=== PATIENT | female | born 1945 | race Asian ===

== ENCOUNTER 2017-02-14 11:25 | Day surgery (SDC) | payer MEDICARE, OTHER ==
[2017-02-14] VITALS (7 sets, daily range): BP systolic 117–143; BP diastolic 60–77; PULSE 63–96; RESP 14–20; Ht 160 cm; Wt 58.5 kg
[~2017-02-14] VITALS: Ht 160 cm; Wt 58.5 kg
[~2017-02-14 11:25] MED LIST: DEXAMETHASONE 4 MG/ML 1 ML INJ ONE; ONDANSETRON 4 MG INJ ONE; QUET25TA26; UNK HTN MED; VALS80TA2; [UNRECOGNIZED DRUG - REMARK]
[2017-02-14] MEDS ORDERED: ALEN70TA30 PO (11:38)
[2017-02-14] MEDS ORDERED: MECL-77 PO (11:39)
[2017-02-14] MEDS ORDERED: LEVO125T71 PO (11:42)
[2017-02-14] MEDS ORDERED: AMIO100T4 PO (11:42)
[2017-02-14] MEDS ORDERED: LIDO700A10 TP (11:43)
[2017-02-14] MEDS ORDERED: FENO145T19 PO (11:43)
[2017-02-14] MEDS ORDERED: VALS80TA2 PO (11:44)
[2017-02-14] MEDS ORDERED: OMEG1CAP2 PO (11:44)
[2017-02-14] MEDS ORDERED: FURO-110 PO (11:44)
[2017-02-14] MEDS ORDERED: ATOR20TA38 PO (11:45)
[2017-02-14] MEDS ORDERED: OMEP20CA16 PO (11:45)
[2017-02-14] MEDS ORDERED: MAXZ25 PO (11:47)
[2017-02-14] MEDS ORDERED: NASO17 NASAL (11:47)
[2017-02-14] MEDS ORDERED: LUBI24CA7 PO (11:47)
[2017-02-14] MEDS ORDERED: ADV25050 INHALATION (11:48)
[2017-02-14] MEDS ORDERED: QUET200T27 PO (11:49)
[2017-02-14] MEDS ORDERED: ALPR2TAB PO (11:49)
[2017-02-14] MEDS ORDERED: DULO60CA59 PO (11:49)
[2017-02-14] MEDS ORDERED: CLAR500T PO (11:52)
[2017-02-14] MEDS ORDERED: SOD CHLORIDE 0.9% 1,000 ML IV SCH (12:00)
[2017-02-14] MEDS ORDERED: CEFAZOLIN 2 GM/50 ML (PMX) 50 ML IVPB SCH (12:00)
[2017-02-14 12:16] LABS: BASOPHIL # 0.1 10^3/ul (0.0-0.1); EOSINOPHILS # 0.2 10^3/ul (0.0-0.5); EOSINOPHILS % 3.8 % (0.0-7.0); HEMATOCRIT 32.7 % (37.0-47.0); HEMOGLOBIN 11.1 g/dl (12.0-16.0); LYMPHOCYTES # 3.6 10^3/ul (0.8-2.9); LYMPHOCYTES % 61.7 % (15.0-51.0); MEAN CORPUSCULAR HEMOGLOBIN 33.9 pg (29.0-33.0); MEAN CORPUSCULAR HGB CONC 33.9 g/dl (32.0-37.0); MEAN PLATELET VOLUME 9.6 fl (7.4-10.4); MONOCYTE # 0.4 10^3/ul (0.3-0.9); MONOCYTES % 6.8 % (0.0-11.0); NEUTROPHIL # 1.5 10^3/ul (1.6-7.5); NEUTROPHILS % 26.4 % (39.0-77.0); PLATELET COUNT 313 10^3/UL (140-415); RED BLOOD COUNT 3.27 10^6/ul (4.20-5.40); RED CELL DISTRIBUTION WIDTH 15.3 % (11.5-14.5); WHITE BLOOD COUNT 5.8 10^3/ul (4.8-10.8)
[2017-02-14 12:39] LABS: PARTIAL THROMBOPLASTIN TIME 28.5 Sec (25.0-35.0)
[2017-02-14 12:41] LABS: ALBUMIN 4.1 g/dl (3.3-4.9); ALBUMIN/GLOBULIN RATIO 1.36; BILIRUBIN,INDIRECT 0.2 mg/dl (0-1.1); BILIRUBIN,TOTAL 0.2 mg/dl (0.2-1.3); TOTAL PROTEIN 7.1 g/dl (6.1-8.1)
--- NOTE | 2017-02-14 12:43 | RADRPT ---
PROCEDURE: XR Chest. CLINICAL INDICATION: Preop TECHNIQUE: An AP view of the chest was obtained. COMPARISON: No prior exam is available for comparison. FINDINGS: There is prominence of the interstitial markings. There is a small right pleural effusion. No pneum othorax is seen. The cardiomediastinal silhouette is mildly enlarged . Calcifications are seen wit hin the aortic arch. The osseous structures demonstrate senescent changes. IMPRESSION: 1. Mild prominence of the interstitial markings, may reflect mild underlying interstitial edema or chronic lung changes. 2. Small right pleural effusion. 3. Mild cardiomegaly and aortic atherosclerosis. RPTAT: HH .Ana Grissom MD, MD Date Time Electronically viewed and signed by .Ana Grissom MD, on 02/14/2017 12:43 .G/
[2017-02-14 12:46] LABS: CALCIUM 9.6 mg/dl (8.4-10.2); CREATININE 0.92 mg/dl (0.44-1.00); POTASSIUM 4.1 mmol/L (3.5-5.1)
[2017-02-14 12:55] LABS: INR 1.08; PROTIME 14.1 Sec (11.9-14.9); PT RATIO 1.1
--- NOTE | 2017-02-14 13:19 | RADRPT ---
Vent Rate: 56 bpm RR Interval: 0 msec UT Interval: 200 msec QRS Duration: 88 msec QT Interval: 394 msec QTC Interval: 380 msec P-R-T [place]: 13 - 71 - 41 degrees Sinus bradycardia Otherwise normal ECG Electronically Signed By: Madi Russell [id number]
[2017-02-14] MEDS ORDERED: morphine (1 MG/ML) 10ML SYRINGE IV PRN ×3 (14:00)
[2017-02-14] MEDS ORDERED: OXYCODONE/ACETAMINOPHEN (5/325) TAB PO PRN (14:00)
[2017-02-14] MEDS ORDERED: LABETALOL HCL 20MG INJ IV PRN (14:00)
[2017-02-14] MEDS ORDERED: DIPHENHYDRAMINE 50 MG INJ IV PRN (14:00)
[2017-02-14] MEDS ORDERED: FENTAnyl 50 MCG/ML VIAL IV PRN ×3 (14:00)
[2017-02-14] MEDS ORDERED: KETOROLAC 30 MG INJ IV PRN (14:00)
[2017-02-14] MEDS ORDERED: PROPOFOL 100 ML ONE (14:00)
[2017-02-14] MEDS ORDERED: EPHEDrine SULFATE 50 MG/5 ML SYG IV PRN (14:00)
[2017-02-14] MEDS ORDERED: METOCLOPRAMIDE 10 MG INJ IV PRN (14:00)
[2017-02-14] MEDS ORDERED: hydrALAzine 20 MG INJ IV PRN (14:00)
[2017-02-14] MEDS ORDERED: ONDANSETRON 4 MG INJ IV PRN (14:00)
[2017-02-14] MEDS ORDERED: SUCCINYLCHOLINE CHLORIDE 100 MG/5 ML SYG IV ONE (14:04)
[2017-02-14] MEDS ORDERED: LIDOCAINE 2% (SDV) 5 ML INJ ONE (14:04)
[2017-02-14] MEDS ORDERED: FENTAnyl 50 MCG/ML VIAL ONE (14:04)
[2017-02-14] MEDS ORDERED: CEFAZOLIN 1 GM INJ ONE (14:19)
[2017-02-14] MEDS ORDERED: BUPIVACAINE 0.5%/EPI (SDV) 30 ML INJ ONE (14:41)
--- NOTE | 2017-02-14 15:03 | SIPON ---
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
--- NOTE | 2017-02-14 15:04 | OPR ---
DATE OF OPERATION: 02/14/2017 PREOPERATIVE DIAGNOSIS: Cystic mass posterior cervical region. POSTOPERATIVE DIAGNOSIS: Cystic mass posterior cervical region. PROCEDURE: Excision of cystic mass posterior cervical region. ANESTHESIA: General. ANESTHESIOLOGIST: Dr. Arias. SURGEON: Dr. Nguyen. MOTO MIX OPERATOR: None. INDICATIONS FOR PROCEDURE: The patient is a 71-year-old female who presented with an inflamed cysti c mass in her posterior cervical region, She states that intermittently she experienced some drainag e. Clinically, it was consistent with probable infected epidermal inclusion cyst. She was counsele d as to the risks versus benefits of excision. She consented and was scheduled for surgery. DESCRIPTION OF PROCEDURE: The patient was brought to the operating theater, placed under general an esthesia. She was then put in prone position. Posterior cervical region was prepped and draped in the usual sterile fashion. The palpable mass was identified and approximately a 3 cm incision was m tere directly over it. Subcutaneous tissue was dissected with combination of sharp dissection and ca utery. Within the deep subcutaneous space a cystic mass was identified. With gentle pressure it be came obvious that it was associated with abscess formation and significant amounts of pus were encou ntered. The pus was suctioned and the capsule of the cystic mass was then resected using a combinat ion of cautery and sharp dissection. It was removed and sent for permanent pathologic analysis. Th e wound was irrigated with Betadine. Minimal bleeding was controlled with cautery and the decision was then made to place a quarter inch Kory drain within the wound cavity. The wound was then gen tly closed with 2-0 nylon sutures. The drain was also sewn in place with 2-0 nylon suture. The pat ient tolerated the procedure well. The estimated blood loss was approximately 10 mL. There were no complications and the patient was transported in stable condition to the recovery room. Dictated By: FOZIA MATUTE/EZE Conf#: [id number] DID#: [id number]
== END 2017-02-14 16:23 | disposition home or self-care (01) ==
LOC: SDS 11:25
PROVIDERS: ATTEND Surgery Surgical Oncology
DX: N88.8 Other specified noninflammatory disorders of cervix uteri (principal); E03.9 Hypothyroidism, unspecified; E78.5 Hyperlipidemia, unspecified; I10 Essential (primary) hypertension
CPT/HCPCS: 57500; 71010; 80053; 85025; 85610; 85730; 88307; 93005; J0690; J1100; J2405; J3010

== ENCOUNTER 2017-02-19 11:59 | Observation (INO) | payer MEDICARE, OTHER ==
[~2017-02-19] VITALS: Ht 160 cm; Wt 58.9 kg
[2017-02-19] MEDS: SALMETEROL/FLUTICASONE 250/50 INHA INH SCH (01:00)
[~2017-02-19 11:59] MED LIST changes: +ADV25050 INHALATION; +ALEN70TA30 PO; +ALPR2TAB PO; +AMIO100T4 PO; +ATOR20TA38 PO; +CLAR500T PO; -DEXAMETHASONE 4 MG/ML 1 ML INJ ONE; +DULO60CA59 PO; +FENO145T19 PO; +FURO-110 PO; +LEVO125T71 PO; +LIDO700A10 TP; +LUBI24CA7 PO; +MAXZ25 PO; +MECL-77 PO; +NASO17 NASAL; +OMEG1CAP2 PO; +OMEP20CA16 PO; -ONDANSETRON 4 MG INJ ONE; +QUET200T27 PO; -QUET25TA26; -UNK HTN MED; -VALS80TA2; +VALS80TA2 PO; -[UNRECOGNIZED DRUG - REMARK]
--- NOTE | 2017-02-19 12:16 | ERD ---
ER Documentation Chief Complaint Chief Complaint Altered level of consciousness HPI The patient is a 71-year-old female, presenting to the ER because of altered level of consciousness. She had a cystic cervical mass resection on February. She has been taking lots of pain medication and has had frequent fall at home. She is unable to provide significant history because of her condition Past medical history: Hypertension, dyslipidemia Surgical history/social history/review of system: Unable to perform due to her condition ROS Unable to perform due to her condition Medications Home Meds Reported Medications Acetaminophen with Codeine (Acetaminophen-Cod #3 Tablet) 1 Each Tablet, 1 TAB PO BID, #20 TAB 02/19/17 Clarithromycin* (Clarithromycin*) 500 Mg Tablet, 500 MG PO BID, TAB TAKE FOR 10 DAYS 02/19/17 Levocetirizine Dihydrochloride (Xyzal) 5 Mg Tablet, 5 MG PO QPM, TAB 02/19/17 Levothyroxine Sodium* (Levothyroxine Sodium*) 112 Mcg Tablet, 112 MCG PO BEFORE BREAKFAST, #30 TAB 02/19/17 Ranitidine Hcl* (Ranitidine Hcl*) 150 Mg Tablet, 150 MG PO Q12, #60 TAB 02/19/17 Quetiapine Fumarate* (Quetiapine Fumarate*) 200 Mg Tablet, 200 MG PO DAILY, TAB 02/14/17 Duloxetine Hcl* (Duloxetine Hcl*) 60 Mg Capsule.dr, 60 MG PO DAILY, #30 CAP 02/14/17 Alprazolam* (Xanax*) 2 Mg Tablet, 2 MG PO QHS Y for SLEEP, TAB 02/14/17 Salmeterol Xinaf/Fluticasone* (Advair*) 250-50 Diskus Inhaler, 1 INH INHALATION BID, #1 INHALER 02/14/17 Lubiprostone* (Amitiza*) 24 Mcg Capsule, 24 MCG PO BID, #60 CAP 02/14/17 Atorvastatin Calcium* (Atorvastatin Calcium*) 20 Mg Tablet, 20 MG PO QHS, #30 TAB 02/14/17 Valsartan* (Diovan*) 80 Mg Tablet, 80 MG PO DAILY, TAB 02/14/17 Furosemide* (Lasix*) 20 Mg Tablet, 20 MG PO DAILY, TAB 02/14/17 Mobile-3 Acid Ethyl Esters (Lovaza) 1 Gm Capsule, 2 GM PO BID, CAP 02/14/17 Fenofibrate Nanocrystallized* (Fenofibrate*) 145 Mg Tablet, 145 MG PO DAILY, TAB 02/14/17 Alendronate Sodium* (Fosamax*) 70 Mg Tablet, 70 MG PO Q7D, #4 TAB 02/14/17 Discontinued Reported Medications Clarithromycin* (Clarithromycin*) 500 Mg Tablet, 500 MG PO BID, TAB STARTED 02-04-17 FOR 10 DAYS 02/14/17 Mometasone Furoate* (Nasonex*) 50 Mcg/Hardy - 17 Gm Hardy.pump, 1 SPRAY NASAL BID, #1 BOTTLE IN EACH NOSTRIL 02/14/17 Triamterene/Hctz* (Maxzide (37.5-25)*) 1 Each Tablet, 1 EACH PO DAILY, #30 TAB 02/14/17 Omeprazole* (Omeprazole*) 20 Mg Capsule.dr, 20 MG PO DAILY, #30 CAP 02/14/17 Lidocaine (Lidoderm) 1 Each Adh..patch, 1 EACH TP DAILY 02/14/17 Levothyroxine Sodium* (Levoxyl*) 125 Mcg Tablet, 125 MCG PO BEFORE BREAKFAST, # 30 TAB 02/14/17 Amiodarone Hcl* (Amiodarone Hcl*) 100 Mg Tablet, 100 MG PO DAILY, #30 TAB 02/14/17 Meclizine Hcl* (Meclizine Hcl*) 25 Mg Tablet, 25 MG PO BID Y for DIZZINESS, TAB 02/14/17 [Depression Med Unk ] No Conflict Check 10/29/09 Quetiapine Fumarate* (Seroquel*) 25 Mg Tablet 10/29/09 [Unk Htn Med] No Conflict Check 10/29/09 Valsartan* (Diovan*) 80 Mg Tablet 10/29/09 Allergies Allergies: Coded Allergies: Penicillins (Verified Allergy, Unknown, 02/19/17) levofloxacin (Unverified Allergy, Unknown, 02/19/17) PMhx/Soc History of Surgery: Yes (I AND D OF INFECTED WOUND AT CHEST) Anesthesia Reaction: No Hx Neurological Disorder: No Hx Respiratory Disorders: No Hx Cardiac Disorders: Yes (HTN) Hx Psychiatric Problems: No Hx Miscellaneous Medical Probl: Yes (HYPERLIPIDEMIA) Hx Alcohol Use: No Hx Substance Use: No Hx Tobacco Use: Yes (1 TO 2 CIG A DAY) Physical Exam Vitals Vital Signs Date Time Temp Pulse Resp B/P Pulse Ox O2 Delivery O2 Flow Rate FiO2 02/19/17 17:46 97.6 68 16 134/83 98 Room Air 02/19/17 16:25 63 16 152/61 98 Room Air 02/19/17 14:24 69 16 159/63 98 Room Air 02/19/17 12:37 02/19/17 12:23 98.3 68 20 113/66 98 Physical Exam Const: No acute distress. Head: Atraumatic. Eyes: Normal Conjunctiva. ENT: Normal External Ears, Nose and Mouth. Neck: Full range of motion. No meningismus. Resp: Clear to auscultation bilaterally. Cardio: Regular rate and rhythm. Abd: Soft, non distended, normal bowel sounds, non tender. Skin: No petechiae or rashes. Back: No midline or flank tenderness. Ext: No cyanosis, or edema. Neur: Limited due to her condition Psych: Unable to perform due to her condition Result Diagram: 02/19/17 1230 02/19/17 1350 Results 24 hrs Laboratory Tests Test 02/19/17 12:30 02/19/17 12:44 02/19/17 13:50 02/19/17 14:18 White Blood Count 9.710^3/ul Red Blood Count 3.3010^6/ul Hemoglobin 11.1g/dl Hematocrit 32.4% Mean Corpuscular Volume 98.2fl Mean Corpuscular Hemoglobin 33.6pg Mean Corpuscular Hemoglobin Concent 34.3g/dl Red Cell Distribution Width 15.6% Platelet Count 90662^3/UL Mean Platelet Volume 10.4fl Neutrophils % 60.8% Lymphocytes % 29.7% Monocytes % 7.4% Eosinophils % 1.2% Basophils % 0.5% Nucleated Red Blood Cells % 0.0/100WBC Neutrophils # 5.910^3/ul Lymphocytes # 2.910^3/ul Monocytes # 0.710^3/ul Eosinophils # 0.110^3/ul Basophils # 0.110^3/ul Nucleated Red Blood Cells # 0.010^3/ul Prothrombin Time 13.7Sec Prothrombin Time Ratio 1.1 INR International Normalized Ratio 1.04 Activated Partial Thromboplast Time 29.2Sec Bedside Glucose 109mg/dL Sodium Level 144mmol/L Potassium Level 3.8mmol/L Chloride Level 108mmol/L Carbon Dioxide Level 27mmol/L Anion Gap 13 Blood Urea Nitrogen 21mg/dl Creatinine 0.89mg/dl Glucose Level 91mg/dl Calcium Level 9.2mg/dl Total Bilirubin 0.2mg/dl Direct Bilirubin 0.00mg/dl Indirect Bilirubin 0.2mg/dl Aspartate Amino Transf (AST/SGOT) 90IU/L Alanine Aminotransferase (ALT/SGPT) 30IU/L Alkaline Phosphatase 34IU/L Total Protein 6.9g/dl Albumin 3.8g/dl Globulin 3.10g/dl Albumin/Globulin Ratio 1.22 Salicylates Level < 1.0mg/dl Acetaminophen Level < 10.0ug/ml Ethyl Alcohol Level < 10.0mg/dl Bedside Urine pH (LAB) 6.0 Bedside Urine Protein (LAB) Negative Bedside Urine Glucose (UA) Negative Bedside Urine Ketones (LAB) Negative Bedside Urine Blood Negative Bedside Urine Nitrite (LAB) Negative Bedside Urine Leukocyte Esterase (L Trace Test 02/19/17 14:30 Urine Color YELLOW Urine Clarity CLEAR Urine pH 6.0 Urine Specific [place] 1.017 Urine Ketones NEGATIVEmg/dL Urine Nitrite NEGATIVEmg/dL Urine Bilirubin NEGATIVEmg/dL Urine Urobilinogen NEGATIVEmg/dL Urine Leukocyte Esterase NEGATIVELeu/ul Urine Hemoglobin NEGATIVEmg/dL Urine Glucose NEGATIVEmg/dL Urine Total Protein NEGATIVEmg/dl Urine Opiates Screen Positive Urine Barbiturates Negative Urine Amphetamines Screen Negative Urine Benzodiazepines Screen Positive Urine Cocaine Screen Negative Urine Cannabinoids Negative Current Medications Medications (Trade) Dose Ordered Sig/Tnoy Route PRN Reason Start Time Stop Time Status Last Admin Dose Admin Sodium Chloride (NS) 500 ml @ 500 mls/hr Q1H ONCE IV 02/19/17 14:00 02/19/17 14:59 DC 02/19/17 14:22 Alendronate Sodium (Fosamax) 70 mg Q7D PO 02/19/17 17:30 UNV Amiodarone HCl (Cordarone) 100 mg DAILY PO 02/20/17 09:00 UNV Atorvastatin Calcium (Lipitor) 20 mg QHS PO 02/19/17 21:00 UNV Duloxetine HCl (Cymbalta) 60 mg DAILY PO 02/20/17 09:00 UNV Fenofibrate (Tricor) 145 mg DAILY PO 12/13/17 09:00 UNV Furosemide (Lasix) 20 mg DAILY PO 02/20/17 09:00 UNV Levothyroxine Sodium (Synthroid) 125 mcg BEFORE BREAKFAST PO 02/20/17 07:00 UNV Lidocaine (Lidoderm) 1 patch DAILY TD 02/20/17 09:00 UNV Lubiprostone (Amitiza) 24 mcg BID PO 02/19/17 21:00 UNV Quetiapine Fumarate (Seroquel) 200 mg BID PO 02/19/17 21:00 UNV Salmeterol Xinafoate/ Fluticasone (Advair 250/50 Diskus) 1 inh BID INH 02/19/17 21:00 UNV Triamterene/HCTZ (Maxzide-25) 1 tab DAILY PO 02/20/17 09:00 UNV Valsartan (Diovan) 80 mg DAILY PO 02/20/17 09:00 UNV Miscellaneous Information 1 spray BID NASAL 02/19/17 21:00 UNV Miscellaneous Information 1 gm BID PO 02/19/17 21:00 UNV Miscellaneous Information 20 mg DAILY PO 02/20/17 09:00 UNV IV Flush (NS 3 ml) 3 ml PER PROTOCOL IV 02/19/17 17:30 UNV Acetaminophen (Tylenol Tab) 650 mg Q6H PRN PO PAIN LEVEL 1-3 OR FEVER 02/19/17 17:30 UNV Enoxaparin Sodium (Lovenox) 40 mg DAILY SC 02/20/17 09:00 UNV Procedures/[place] [id number] Radiology Main Line: [phone] DIAGNOSTIC IMAGING REPORT Patient: RAVINDRA OLVERA : 1945 Age: 71 Sex: F MR #: [id number] DOS: 02/19/17 0000 Ordering MD: DUANE GARCIA MD Location: E/R Room/Bed: PROCEDURE: XR Chest. CLINICAL INDICATION: Shortness of breath TECHNIQUE: Single portable view of the chest was obtained COMPARISON: DR PANIAGUA 02/14/2017 FINDINGS: The trachea is midline. The cardiac silhouette is enlarged and pulmonary vascularity are within normal limits. There are chronic lung changes. The lungs are clear. The costophrenic angles are sharp. IMPRESSION: 1. Cardiomegaly and chronic lung changes. No evidence of acute cardiopulmonary disease. 2. No change since prior study. RPTAT: AARR Physician Doug Date Time Electronically viewed and signed by Anton Rinaldi Physician on 02/19/2017 13:29 JL/ CC: DUANE GARCIA MD [place] [id number] Radiology Main Line: [phone] DIAGNOSTIC IMAGING REPORT Patient: RAVINDRA OLVERA : 1945 Age: 71 Sex: F MR #: [id number] DOS: 02/19/17 1225 Ordering MD: DUANE GARCIA MD Location: E/R Room/Bed: PROCEDURE: CT Brain without contrast. CLINICAL INDICATION: Altered mental status. TECHNIQUE: A CT of the brain without contrast was performed utilizing axial sections from the skull base through the vertex. One or more the following does reduction techniques were utilized: Automated exposure control, adjustment of the mA/ or kV according to patient's size, or use of iterative reconstruction technique. Total exam CTDIvol is 44.73 MGy and DLP is 630.2 mGy-cm. DICOM images are available. COMPARISON: None available. FINDINGS: The ventricles and sulci are mildly prominent indicative of volume loss. There is no intracranial hemorrhage, mass effect or midline shift. No abnormal intra- axial or extra-axial fluid collections are seen. The hope/white matter differentiation is well preserved. There are mild foci of hypoattenuation in the white matter, which are nonspecific in etiology but likely reflect chronic small vessel ischemic changes. There are mild intracranial vascular calcifications consistent with atherosclerosis. The visualized paranasal sinuses are essentially clear. IMPRESSION: 1. No acute intracranial hemorrhage, transcortical infarction or mass effect. 2. Mild intracranial atherosclerosis and chronic small vessel ischemic changes. 3. Mild generalized cerebral volume loss. RPTAT: QQ .Liban Barros MD, MD Date Time Electronically viewed and signed by .Liban Barros MD, on 02/19/2017 13: 16 .N/ CC: DUANE GARCIA MD EKG: Read by emergency physician Rate/Rhythm: Normal Sinus Rhythm 65 beats/min QRS, ST, T-waves: No ST elevation, no T inversion, inf Q waves, 1 st AVB Impression: Abnormal EKG MEDICAL MAKING DECISION: The patient is a 71-year-old female, presenting with acute encephalopathy and acute generalized weakness, most likely due to overmedication. She is unable to ambulate independently in the emergency department, she was therefore admitted to the hospital for observation The differential diagnoses considered include but are not limited to medication non-compliance, dehydration, drug intoxication or withdrawal, endocrine disorder , trauma, CVA, tumor, metabolic encephalopathy, septic encephalopathy. Departure Diagnosis: Primary Impression: Encephalopathy acute Additional Impressions: Weakness Anemia Abnormal LFTs Condition: Stable Comments I discussed the findings with the patient. I discussed the patient with the hospitalist at 4:30 PM who was made aware of the lab, the treatment, the patient condition. The patient is admitted to Tel [facility] Disclaimer: Inadvertent spelling and grammatical errors are likely due to EHR/ dictation software use and do not reflect on the overall quality of patient care. Also, please note that the electronic time recorded on this note does not necessarily reflect the actual time of the patient encounter. DUANE GARCIA MD Feb 19, 2017 12:16
[2017-02-19 12:53] LABS: BASOPHIL # 0.1 10^3/ul (0.0-0.1); BASOPHILS % 0.5 % (0.0-2.0); EOSINOPHILS # 0.1 10^3/ul (0.0-0.5); EOSINOPHILS % 1.2 % (0.0-7.0); HEMATOCRIT 32.4 % (37.0-47.0); HEMOGLOBIN 11.1 g/dl (12.0-16.0); LYMPHOCYTES # 2.9 10^3/ul (0.8-2.9); LYMPHOCYTES % 29.7 % (15.0-51.0); MEAN CORPUSCULAR HEMOGLOBIN 33.6 pg (29.0-33.0); MEAN CORPUSCULAR HGB CONC 34.3 g/dl (32.0-37.0); MEAN CORPUSCULAR VOLUME 98.2 fl (82.0-101.0); MEAN PLATELET VOLUME 10.4 fl (7.4-10.4); MONOCYTE # 0.7 10^3/ul (0.3-0.9); MONOCYTES % 7.4 % (0.0-11.0); NEUTROPHIL # 5.9 10^3/ul (1.6-7.5); NEUTROPHILS % 60.8 % (39.0-77.0); PLATELET COUNT 299 10^3/UL (140-415); RED CELL DISTRIBUTION WIDTH 15.6 % (11.5-14.5); WHITE BLOOD COUNT 9.7 10^3/ul (4.8-10.8)
[2017-02-19 13:12] LABS: INR 1.04; PROTIME 13.7 Sec (11.9-14.9); PT RATIO 1.1
[2017-02-19 13:13] LABS: PARTIAL THROMBOPLASTIN TIME 29.2 Sec (25.0-35.0)
--- NOTE | 2017-02-19 13:16 | RADRPT ---
PROCEDURE: CT Brain without contrast. CLINICAL INDICATION: Altered mental status. TECHNIQUE: A CT of the brain without contrast was performed utilizing axial sections from the skul l base through the vertex. One or more the following does reduction techniques were utilized: Automa nicho exposure control, adjustment of the mA/ or kV according to patient's size, or use of iterative r econstruction technique. Total exam CTDIvol is 44.73 MGy and DLP is 630.2 mGy-cm. DICOM images are available. COMPARISON: None available. FINDINGS: The ventricles and sulci are mildly prominent indicative of volume loss. There is no intracranial h emorrhage, mass effect or midline shift. No abnormal intra-axial or extra-axial fluid collections a re seen. The hope/white matter differentiation is well preserved. There are mild foci of hypoattenuation in the white matter, which are nonspecific in etiology but li jose deuardo reflect chronic small vessel ischemic changes. There are mild intracranial vascular calcificati ons consistent with atherosclerosis. The visualized paranasal sinuses are essentially clear. IMPRESSION: 1. No acute intracranial hemorrhage, transcortical infarction or mass effect. 2. Mild intracranial atherosclerosis and chronic small vessel ischemic changes. 3. Mild generalized cerebral volume loss. RPTAT: QQ .Liban Barros MD, Date Time Electronically viewed and signed by .Liban Barros MD, MD on 02/19/2017 13:16 .N/
--- NOTE | 2017-02-19 13:29 | RADRPT ---
PROCEDURE: XR Chest. CLINICAL INDICATION: Shortness of breath TECHNIQUE: Single portable view of the chest was obtained COMPARISON: DR PANIAGUA 02/14/2017 FINDINGS: The trachea is midline. The cardiac silhouette is enlarged and pulmonary vascularity are within norm al limits. There are chronic lung changes. The lungs are clear. The costophrenic angles are sharp. IMPRESSION: 1. Cardiomegaly and chronic lung changes. No evidence of acute cardiopulmonary disease. 2. No change since prior study. RPTAT: AARR Physician Doug Date Time Electronically viewed and signed by Physician Doug on 02/19/2017 13:29 JL/
[2017-02-19] MEDS ORDERED: SOD CHLORIDE 0.9% 500 ML IV ONE (14:00)
[2017-02-19 14:19] LABS: URINE BLOOD (Dip) POC Negative (NEGATIVE)
[2017-02-19 14:49] LABS: ALANINE AMINOTRANSFERASE 30 IU/L (13-69); ALBUMIN 3.8 g/dl (3.3-4.9); ALBUMIN/GLOBULIN RATIO 1.22; ALKALINE PHOSPHATASE 34 IU/L (42-121); ANION GAP 13 (8-16); ASPARTATE AMINO TRANSFERASE 90 IU/L (15-46); BILIRUBIN,INDIRECT 0.2 mg/dl (0-1.1); BILIRUBIN,TOTAL 0.2 mg/dl (0.2-1.3); BLOOD UREA NITROGEN 21 mg/dl (7-20); CALCIUM 9.2 mg/dl (8.4-10.2); CARBON DIOXIDE 27 mmol/L (21-31); CHLORIDE 108 mmol/L (97-110); CREATININE 0.89 mg/dl (0.44-1.00); GLUCOSE 91 mg/dl (70-220); POTASSIUM 3.8 mmol/L (3.5-5.1); SODIUM 144 mmol/L (135-144); TOTAL PROTEIN 6.9 g/dl (6.1-8.1)
[2017-02-19 14:52] LABS: ACETAMINOPHEN < 10.0 ug/ml (10.0-30.0); SALICYLATE < 1.0 mg/dl (5.0-30.0)
[2017-02-19 15:01] LABS: ETHANOL < 10.0 mg/dl
[2017-02-19 15:21] LABS: ADD UMIC NO; UR ASCORBIC ACID 40 mg/dL (NEGATIVE); UR BILIRUBIN (Dip) NEGATIVE (NEGATIVE); UR BLOOD (Dip) NEGATIVE (NEGATIVE); UR CLARITY CLEAR (CLEAR); UR COLOR YELLOW (YELLOW); UR GLUCOSE (Dip) NEGATIVE (NEGATIVE); UR KETONES (Dip) NEGATIVE (NEGATIVE); UR LEUKOCYTE ESTERASE (Dip) NEGATIVE Leu/ul (NEGATIVE); UR NITRITE (Dip) NEGATIVE (NEGATIVE); UR SPECIFIC GRAVITY (Dip) 1.017 (1.003-1.030); UR TOTAL PROTEIN (Dip) NEGATIVE (NEGATIVE); UR UROBILINOGEN (Dip) NEGATIVE (NEGATIVE)
[2017-02-19 16:50] LABS: BARBITURATES Negative (NEGATIVE); OPIATES Positive (NEGATIVE)
[2017-02-19 16:51] LABS: BENZODIAZEPINES Positive (NEGATIVE); CANNABINOIDS Negative (NEGATIVE); COCAINE Negative (NEGATIVE)
[2017-02-19] MEDS ORDERED: ACETAMINOPHEN 325 MG TAB PO PRN (17:30)
[2017-02-19] MEDS ORDERED: NACL 0.9% 3 ML SYG IV SCH (17:30)
[2017-02-19] MEDS ORDERED: ALENDRONATE 70 MG TAB PO SCH (17:30)
[2017-02-19] MEDS ORDERED: RANI150T5 PO (17:42)
[2017-02-19] MEDS ORDERED: LEVO112T57 PO (17:42)
[2017-02-19] MEDS ORDERED: LEVO5TAB28 PO (17:43)
[2017-02-19] MEDS ORDERED: CLAR500T PO (17:45)
[2017-02-19] MEDS ORDERED: ACET1TAB40 PO (17:45)
--- NOTE | 2017-02-19 18:43 | HP ---
Date/Time of Note Date/Time of Note DATE: 02/19/17 TIME: 18:31 Assessment/Plan VTE Prophylaxis VTE Prophylaxis Intervention: heparin Assessment/Plan Chief Complaint/Hosp Course 71 yo female with anxiety, hypothyroid, recent drainage of skin abscess to posterior neck presenting with lethargy and encephalopathy over past couple days - I suspect that this is a medication effect given timing of codeine use, patient also with Rx for alprazolam, quetiapine, tramadol, meclizine so multiple other sedatives to contribute to this presentation - Hypothyroidism is a consideration, will check TSH/FT4 - Head CT shows no acute changes - Will monitor overnight and expect improvement, further workup if not Hypothyroid: - Continue LT4, check TSH as above Hypertension: - Hold home meds for now Anxiety; - Hold home meds for now Discharge likley tomorrow if back to normal Problems: HPI/ROS Admit Date/Time Admit Date/Time Hx of Present Illness 71 yo female with h/o anxiety, hypothyroid who presents with lethargy and encephelopathy for past two days Patient underwent surgical drainage of an abscess on her posterior neck last week. She was given tylenol only for pain control. However, still with pain so tylenol/codein was prescribed over the weekend. Not clear what other medications the patient was taking. Per her children at bedside she became quite somnulent Saturday evening, slept all yesterday. Then today still very somnulent and encephelopathic so family brougth her here to ED Patient denies anyu pain to me or localizing symptoms. SHe cannot provide a history. She was very lethargic when she arrived, unable to communicate. Per family, she is improving since arrival. PMH/Family/Social Past Medical History Medical History: hypothyroid Social History Alcohol Use: sober Smoking Status: Current every day smoker Drug Use: none Exam/Review of Systems Vital Signs Vitals Vital Signs Date Time Temp Pulse Resp B/P Pulse Ox O2 Delivery O2 Flow Rate FiO2 02/19/17 17:46 97.6 68 16 134/83 98 Room Air 02/19/17 12:37 Exam Exam Sleepy but easily arousable Oriented to person, place, originally thought it was 1917 but then corrected to 2017, knows president, can do three item recall RRR nomral heart sounds Clear lungs, nonlabored CNII -XII intact, strenght in tact throughout, sensation in tact throughout Labs Result Diagram: 02/19/17 1230 02/19/17 1350 Medications Medications Current Medications Alendronate Sodium (Fosamax) 70 mg Q7D PO ; Start 02/19/17 at 17:30; Status UNV Amiodarone HCl (Cordarone) 100 mg DAILY PO ; Start 02/20/17 at 09:00; Status UNV Atorvastatin Calcium (Lipitor) 20 mg QHS PO ; Start 02/19/17 at 21:00; Status UNV Duloxetine HCl (Cymbalta) 60 mg DAILY PO ; Start 02/20/17 at 09:00; Status UNV Fenofibrate (Tricor) 145 mg DAILY PO ; Start 02/20/17 at 09:00; Status UNV Furosemide (Lasix) 20 mg DAILY PO ; Start 02/20/17 at 09:00; Status UNV Lidocaine (Lidoderm) 1 patch DAILY TD ; Start 02/20/17 at 09:00; Status UNV Lubiprostone (Amitiza) 24 mcg BID PO ; Start 02/19/17 at 21:00; Status UNV Quetiapine Fumarate (Seroquel) 200 mg BID PO ; Start 02/19/17 at 21:00; Status UNV Salmeterol Xinafoate/ Fluticasone (Advair 250/50 Diskus) 1 inh BID INH ; Start 02/19/17 at 21:00; Status UNV Triamterene/HCTZ (Maxzide-25) 1 tab DAILY PO ; Start 02/20/17 at 09:00; Status UNV Valsartan (Diovan) 80 mg DAILY PO ; Start 02/20/17 at 09:00; Status UNV Miscellaneous Information 1 spray BID NASAL ; Start 02/19/17 at 21:00; Status UNV Miscellaneous Information 1 gm BID PO ; Start 02/19/17 at 21:00; Status UNV Miscellaneous Information 20 mg DAILY PO ; Start 02/20/17 at 09:00; Status UNV Acetaminophen (Tylenol Tab) 650 mg Q6H PRN PO PAIN LEVEL 1-3 OR FEVER; Start 02/19/17 at 17:30; Status UNV Enoxaparin Sodium (Lovenox) 40 mg DAILY SC ; Start 02/20/17 at 09:00; Status UNV JOSE OBRIEN MD Feb 19, 2017 18:42
[2017-02-19 18:50] VITALS: TEMP 98.6
[2017-02-19] MEDS ORDERED: ATORVASTATIN 20 MG TAB PO SCH (21:00)
[2017-02-19] MEDS ORDERED: QUETIAPINE 100 MG TAB PO SCH (21:00)
[2017-02-19] MEDS ORDERED: NON-FORMULARY/PATIENT OWN MED (Omega-3 Acid Ethyl Esters (Lovaza) 1 GM) PO SCH (21:00)
[2017-02-19] MEDS ORDERED: NON-FORMULARY/PATIENT OWN MED (Mometasone Furoate* (Nasonex*) 1 SPRAY) NASAL SCH (21:00)
[2017-02-19] MEDS ORDERED: LUBIPROSTONE 24 MCG CAP PO SCH (21:00)
[2017-02-20] VITALS (8 sets, daily range): BP systolic 111–140; BP diastolic 60–61; PULSE 58–86; RESP 16–19; Ht 160 cm; Wt 58.9 kg
[2017-02-20] MEDS ORDERED: LEVOTHYROXINE 125 MCG TAB PO SCH (07:00)
[2017-02-20 07:34] LABS: BASOPHILS % 0.5 % (0.0-2.0); EOSINOPHILS # 0.2 10^3/ul (0.0-0.5); EOSINOPHILS % 2.3 % (0.0-7.0); HEMATOCRIT 31.8 % (37.0-47.0); HEMOGLOBIN 10.7 g/dl (12.0-16.0); LYMPHOCYTES # 3.7 10^3/ul (0.8-2.9); LYMPHOCYTES % 49.1 % (15.0-51.0); MEAN CORPUSCULAR HEMOGLOBIN 33.2 pg (29.0-33.0); MEAN CORPUSCULAR HGB CONC 33.6 g/dl (32.0-37.0); MEAN CORPUSCULAR VOLUME 98.8 fl (82.0-101.0); MEAN PLATELET VOLUME 10.2 fl (7.4-10.4); MONOCYTE # 0.6 10^3/ul (0.3-0.9); MONOCYTES % 7.6 % (0.0-11.0); NEUTROPHILS % 40.4 % (39.0-77.0); PLATELET COUNT 289 10^3/UL (140-415); RED BLOOD COUNT 3.22 10^6/ul (4.20-5.40); RED CELL DISTRIBUTION WIDTH 14.9 % (11.5-14.5); WHITE BLOOD COUNT 7.5 10^3/ul (4.8-10.8)
[2017-02-20 07:55] LABS: ALBUMIN 3.5 g/dl (3.3-4.9); ALBUMIN/GLOBULIN RATIO 1.06; BILIRUBIN,INDIRECT 0.4 mg/dl (0-1.1); BILIRUBIN,TOTAL 0.4 mg/dl (0.2-1.3); CALCIUM 9.1 mg/dl (8.4-10.2); CREATININE 0.78 mg/dl (0.44-1.00); POTASSIUM 4.1 mmol/L (3.5-5.1); TOTAL PROTEIN 6.8 g/dl (6.1-8.1)
[2017-02-20] MEDS ORDERED: VALSARTAN 80 MG TAB PO SCH (09:00)
[2017-02-20] MEDS ORDERED: FUROSEMIDE 20 MG TAB PO SCH (09:00)
[2017-02-20] MEDS ORDERED: AMIODARONE 200 MG TAB PO SCH (09:00)
[2017-02-20] MEDS ORDERED: FENOFIBRATE 145 MG TAB PO SCH (09:00)
[2017-02-20] MEDS ORDERED: TRIAMTERENE/HCTZ (37.5/25) TAB PO SCH (09:00)
[2017-02-20] MEDS ORDERED: LIDOCAINE 5% PATCH TD SCH (09:00)
[2017-02-20] MEDS ORDERED: NON-FORMULARY/PATIENT OWN MED (Omeprazole* 20 MG) PO SCH (09:00)
[2017-02-20] MEDS ORDERED: DULOXETINE 30 MG CAP DR PO SCH (09:00)
[2017-02-20] MEDS ORDERED: ENOXAPARIN 40 MG/0.4 ML SYG SC SCH (09:00)
[2017-02-20] MEDS: SALMETEROL/FLUTICASONE 250/50 INHA INH SCH (09:00)
[2017-02-20] MEDS ORDERED: LEVO112T57 PO (10:51)
--- NOTE | 2017-02-20 10:53 | PDOCDIS ---
Discharge Instructions DIAGNOSIS Discharge Diagnosis Encephelopathy CONDITION Patient Condition: Fair FOLLOW UP/APPOINTMENTS Follow-up Plan Your thyroid hormone level is low. It is very important for you to take your thyroid medication. It is available at [facility]. You need to have your thyroid function checked by your primary doctor in the next few weeks JOSE OBRIEN MD Feb 20, 2017 10:53
--- NOTE | 2017-02-20 10:55 | DS ---
Date/Time of Note Date/Time of Note DATE: 02/20/17 TIME: 10:53 Discharge Summary Admission/Discharge Info Admit Date/Time Feb 19, 2017 at 16:40 Discharge Date/Time Discharge Diagnosis Encephelopathy Patient Condition: Fair Hx of Present Illness 71 yo female with h/o anxiety, hypothyroid who presents with lethargy and encephelopathy for past two days Patient underwent surgical drainage of an abscess on her posterior neck last week. She was given tylenol only for pain control. However, still with pain so tylenol/codein was prescribed over the weekend. Not clear what other medications the patient was taking. Per her children at bedside she became quite somnulent Saturday evening, slept all yesterday. Then today still very somnulent and encephelopathic so family brougth her here to ED Patient denies anyu pain to me or localizing symptoms. SHe cannot provide a history. She was very lethargic when she arrived, unable to communicate. Per family, she is improving since arrival. Hospital Course The patient's mental status returned to baseline with supportive care alone by the following morning. Her labs were notable for TSH fo 18 and FT4 of 0.3. She was counseled on the importance of adherence to her thyroid medication and a refill of synthroid 112 mcg daily was sent to [facility] pharmacy. Her episode of acute encehpelopathy is likely secondary to effects of her sedating medications as her cognitive state resolved to normal. Home Meds Reported Medications Acetaminophen with Codeine (Acetaminophen-Cod #3 Tablet) 1 Each Tablet, 1 TAB PO BID, #20 TAB 02/19/17 Clarithromycin* (Clarithromycin*) 500 Mg Tablet, 500 MG PO BID, TAB TAKE FOR 10 DAYS 02/19/17 Levocetirizine Dihydrochloride (Xyzal) 5 Mg Tablet, 5 MG PO QPM, TAB 02/19/17 Levothyroxine Sodium* (Levothyroxine Sodium*) 112 Mcg Tablet, 112 MCG PO BEFORE BREAKFAST, #30 TAB 02/19/17 Ranitidine Hcl* (Ranitidine Hcl*) 150 Mg Tablet, 150 MG PO Q12, #60 TAB 02/19/17 Quetiapine Fumarate* (Quetiapine Fumarate*) 200 Mg Tablet, 200 MG PO DAILY, TAB 02/14/17 Duloxetine Hcl* (Duloxetine Hcl*) 60 Mg Capsule.dr, 60 MG PO DAILY, #30 CAP 02/14/17 Alprazolam* (Xanax*) 2 Mg Tablet, 2 MG PO QHS Y for SLEEP, TAB 02/14/17 Salmeterol Xinaf/Fluticasone* (Advair*) 250-50 Diskus Inhaler, 1 INH INHALATION BID, #1 INHALER 02/14/17 Lubiprostone* (Amitiza*) 24 Mcg Capsule, 24 MCG PO BID, #60 CAP 02/14/17 Atorvastatin Calcium* (Atorvastatin Calcium*) 20 Mg Tablet, 20 MG PO QHS, #30 TAB 02/14/17 Valsartan* (Diovan*) 80 Mg Tablet, 80 MG PO DAILY, TAB 02/14/17 Furosemide* (Lasix*) 20 Mg Tablet, 20 MG PO DAILY, TAB 02/14/17 [place]-3 Acid Ethyl Esters (Lovaza) 1 Gm Capsule, 2 GM PO BID, CAP 02/14/17 Fenofibrate Nanocrystallized* (Fenofibrate*) 145 Mg Tablet, 145 MG PO DAILY, TAB 02/14/17 Alendronate Sodium* (Fosamax*) 70 Mg Tablet, 70 MG PO Q7D, #4 TAB 02/14/17 Discontinued Reported Medications Clarithromycin* (Clarithromycin*) 500 Mg Tablet, 500 MG PO BID, TAB STARTED 02-04-17 FOR 10 DAYS 02/14/17 Mometasone Furoate* (Nasonex*) 50 Mcg/Karnack - 17 Gm [place]ack.pump, 1 SPRAY NASAL BID, #1 BOTTLE IN EACH NOSTRIL 02/14/17 Triamterene/Hctz* (Maxzide (37.5-25)*) 1 Each Tablet, 1 EACH PO DAILY, #30 TAB 02/14/17 Omeprazole* (Omeprazole*) 20 Mg Capsule.dr, 20 MG PO DAILY, #30 CAP 02/14/17 Lidocaine (Lidoderm) 1 Each Adh..patch, 1 EACH TP DAILY 02/14/17 Levothyroxine Sodium* (Levoxyl*) 125 Mcg Tablet, 125 MCG PO BEFORE BREAKFAST, # 30 TAB 02/14/17 Amiodarone Hcl* (Amiodarone Hcl*) 100 Mg Tablet, 100 MG PO DAILY, #30 TAB 12/7/17 Meclizine Hcl* (Meclizine Hcl*) 25 Mg Tablet, 25 MG PO BID Y for DIZZINESS, TAB 02/14/17 [Depression Med Unk ] No Conflict Check 10/29/09 Quetiapine Fumarate* (Seroquel*) 25 Mg Tablet 10/29/09 [Unk Htn Med] No Conflict Check 10/29/09 Valsartan* (Diovan*) 80 Mg Tablet 10/29/09 Follow-up Plan Your thyroid hormone level is low. It is very important for you to take your thyroid medication. It is available at [facility] pharmacy. You need to have your thyroid function checked by your primary doctor in the next few weeks Primary Care Provider Not On Staff Doctor Pending Labs Laboratory Tests Test 02/19/17 12:30 02/19/17 12:44 02/19/17 13:50 02/19/17 14:18 White Blood Count 9.710^3/ul (4.8-10.8) Red Blood Count 3.3010^6/ul (4.20-5.40) Hemoglobin 11.1g/dl (12.0-16.0) Hematocrit 32.4% (37.0-47.0) Mean Corpuscular Volume 98.2fl (82.0-101.0) Mean Corpuscular Hemoglobin 33.6pg (29.0-33.0) Mean Corpuscular Hemoglobin Concent 34.3g/dl (32.0-37.0) Red Cell Distribution Width 15.6% (11.5-14.5) Platelet Count 93486^3/UL (140-415) Mean Platelet Volume 10.4fl (7.4-10.4) Neutrophils % 60.8% (39.0-77.0) Lymphocytes % 29.7% (15.0-51.0) Monocytes % 7.4% (0.0-11.0) Eosinophils % 1.2% (0.0-7.0) Basophils % 0.5% (0.0-2.0) Nucleated Red Blood Cells % 0.0/100WBC (0.0-0.0) Neutrophils # 5.910^3/ul (1.6-7.5) Lymphocytes # 2.910^3/ul (0.8-2.9) Monocytes # 0.710^3/ul (0.3-0.9) Eosinophils # 0.110^3/ul (0.0-0.5) Basophils # 0.110^3/ul (0.0-0.1) Nucleated Red Blood Cells # 0.010^3/ul (0.0-0.0) Prothrombin Time 13.7Sec (11.9-14.9) Prothrombin Time Ratio 1.1 INR International Normalized Ratio 1.04 Activated Partial Thromboplast Time 29.2Sec (25.0-35.0) Bedside Glucose 109mg/dL (70-220) Sodium Level 144mmol/L (135-144) Potassium Level 3.8mmol/L (3.5-5.1) Chloride Level 108mmol/L (97-110) Carbon Dioxide Level 27mmol/L (21-31) Anion Gap 13 (8-16) Blood Urea Nitrogen 21mg/dl (7-20) Creatinine 0.89mg/dl (0.44-1.00) Glucose Level 91mg/dl (70-220) Calcium Level 9.2mg/dl (8.4-10.2) Total Bilirubin 0.2mg/dl (0.2-1.3) Direct Bilirubin 0.00mg/dl (0.00-0.20) Indirect Bilirubin 0.2mg/dl (0-1.1) Aspartate Amino Transf (AST/SGOT) 90IU/L (15-46) Alanine Aminotransferase (ALT/SGPT) 30IU/L (13-69) Alkaline Phosphatase 34IU/L (42-121) Total Protein 6.9g/dl (6.1-8.1) Albumin 3.8g/dl (3.3-4.9) Globulin 3.10g/dl (1.3-3.2) Albumin/Globulin Ratio 1.22 Thyroid Stimulating Hormone (TSH) 18.100MIU/L (0.465-4.680) Salicylates Level < 1.0mg/dl (5.0-30.0) Acetaminophen Level < 10.0ug/ml (10.0-30.0) Ethyl Alcohol Level < 10.0mg/dl Bedside Urine pH (LAB) 6.0 (5.0-8.5) Bedside Urine Protein (LAB) Negative (NEGATIVE) Bedside Urine Glucose (UA) Negative (NEGATIVE) Bedside Urine Ketones (LAB) Negative (NEGATIVE) Bedside Urine Blood Negative (NEGATIVE) Bedside Urine Nitrite (LAB) Negative (NEGATIVE) Bedside Urine Leukocyte Esterase (L Trace (NEGATIVE) Test 02/19/17 14:30 02/20/17 06:56 Urine Color YELLOW (YELLOW) Urine Clarity CLEAR (CLEAR) Urine pH 6.0 (5.0-9.0) Urine Specific [place] 1.017 (1.003-1.030) Urine Ketones NEGATIVEmg/dL (NEGATIVE) Urine Nitrite NEGATIVEmg/dL (NEGATIVE) Urine Bilirubin NEGATIVEmg/dL (NEGATIVE) Urine Urobilinogen NEGATIVEmg/dL (NEGATIVE) Urine Leukocyte Esterase NEGATIVELeu/ul (NEGATIVE) Urine Hemoglobin NEGATIVEmg/dL (NEGATIVE) Urine Glucose NEGATIVEmg/dL (NEGATIVE) Urine Total Protein NEGATIVEmg/dl (NEGATIVE) Free Thyroxine 0.37ng/dl (0.78-2.44) Urine Opiates Screen Positive (NEGATIVE) Urine Barbiturates Negative (NEGATIVE) Urine Amphetamines Screen Negative (NEGATIVE) Urine Benzodiazepines Screen Positive (NEGATIVE) Urine Cocaine Screen Negative (NEGATIVE) Urine Cannabinoids Negative (NEGATIVE) White Blood Count 7.510^3/ul (4.8-10.8) Red Blood Count 3.2210^6/ul (4.20-5.40) Hemoglobin 10.7g/dl (12.0-16.0) Hematocrit 31.8% (37.0-47.0) Mean Corpuscular Volume 98.8fl (82.0-101.0) Mean Corpuscular Hemoglobin 33.2pg (29.0-33.0) Mean Corpuscular Hemoglobin Concent 33.6g/dl (32.0-37.0) Red Cell Distribution Width 14.9% (11.5-14.5) Platelet Count 58957^3/UL (140-415) Mean Platelet Volume 10.2fl (7.4-10.4) Neutrophils % 40.4% (39.0-77.0) Lymphocytes % 49.1% (15.0-51.0) Monocytes % 7.6% (0.0-11.0) Eosinophils % 2.3% (0.0-7.0) Basophils % 0.5% (0.0-2.0) Nucleated Red Blood Cells % 0.0/100WBC (0.0-0.0) Neutrophils # 3.010^3/ul (1.6-7.5) Lymphocytes # 3.710^3/ul (0.8-2.9) Monocytes # 0.610^3/ul (0.3-0.9) Eosinophils # 0.210^3/ul (0.0-0.5) Basophils # 0.010^3/ul (0.0-0.1) Nucleated Red Blood Cells # 0.010^3/ul (0.0-0.0) Sodium Level 144mmol/L (135-144) Potassium Level 4.1mmol/L (3.5-5.1) Chloride Level 109mmol/L (97-110) Carbon Dioxide Level 26mmol/L (21-31) Anion Gap 13 (8-16) Blood Urea Nitrogen 18mg/dl (7-20) Creatinine 0.78mg/dl (0.44-1.00) Glucose Level 138mg/dl (70-220) Calcium Level 9.1mg/dl (8.4-10.2) Total Bilirubin 0.4mg/dl (0.2-1.3) Direct Bilirubin 0.00mg/dl (0.00-0.20) Indirect Bilirubin 0.4mg/dl (0-1.1) Aspartate Amino Transf (AST/SGOT) 122IU/L (15-46) Alanine Aminotransferase (ALT/SGPT) 30IU/L (13-69) Alkaline Phosphatase 29IU/L (42-121) Total Protein 6.8g/dl (6.1-8.1) Albumin 3.5g/dl (3.3-4.9) Globulin 3.30g/dl (1.3-3.2) Albumin/Globulin Ratio 1.06 JOSE OBRIEN MD Feb 20, 2017 10:55
[2017-02-21] MEDS ORDERED: INFLUENZA VIRUS VACCINE 0.5 ML (DISPENSING) IM* ONE (09:00)
== END 2017-02-20 15:22 | disposition home or self-care (01) ==
LOC: E/R 11:59 → MS4 16:40
PROVIDERS: ADMIT Family Medicine; ATTEND Family Medicine
DX: G93.40 Encephalopathy, unspecified (principal); I10 Essential (primary) hypertension; E78.5 Hyperlipidemia, unspecified; E03.9 Hypothyroidism, unspecified; F41.9 Anxiety disorder, unspecified; I67.2 Cerebral atherosclerosis; F17.210 Nicotine dependence, cigarettes, uncomplicated; Z88.1 Allergy status to other antibiotic agents; Z88.0 Allergy status to penicillin
CPT/HCPCS: 36415; 70450; 71010; 80053; 80306; 80307; 81003; 82962; 84439; 84443; 85025; 85610; 85730; 93005; 97161; 97166; 97535; 99285; G0378; G8978; G8979; G8980; G8987; G8988; G8989; J1650; J7040

== ENCOUNTER 2017-06-18 17:56 | Inpatient (IN) | END 2017-06-23 23:43 | DRG 641 ==